=== PATIENT | female | born 1995 | race Caucasian/White ===

== ENCOUNTER → 2017-12-18 | Outpatient (CLI) | payer BC ==
[~2017-12-18] VITALS: Ht 160 cm; Wt 59.0 kg
[~2017-12-18] MED LIST: CETI10CA PO; SINCALIDE 1.2 MCG in IV NORMAL SALINE 50ML 30 ML IV ONE
--- NOTE | 2017-12-18 09:57 | RAD ---
Limited right upper quadrant abdominal ultrasound without comparison for 6 months of epigastric and right upper quadrant pain, intermittent. TECHNIQUE AND FINDINGS: Real-time grayscale and color Doppler evaluation of the right upper quadrant abdominal organs is performed. Visualized portions of the aorta are nonaneurysmal. The IVC is patent. The liver is normal in size, echogenicity, and contour, with no focal parenchymal abnormalities. No intra or extrahepatic biliary ductal dilatation. Common bile duct measures 3 mm in thickness. The gallbladder is fluid distended and free of any gallbladder wall thickening, pericholecystic fluid, shadowing stones, or sludge. No sonographic Giles sign was elicited. The right kidney measures 9.6 x 5.0 x 4.2 cm and is free of hydronephrosis or perinephric fluid. No focal parenchymal abnormalities are seen. Visualized portions of the pancreas are normal as well. No free fluid is seen and no abdominal masses are present within the interrogated regions of the abdomen. IMPRESSION: 1. Normal limited ultrasound of the right upper quadrant. Electronically signed by: Jermaine Humphrey MD (12/18/2017 9:53 AM) [id number]
--- NOTE | 2017-12-18 15:03 | RAD ---
EXAM: Nuclear hepatobiliary scan. HISTORY: Pain. TECHNIQUE: Following intravenous administration of 5.5 mCi Tc 99m Choletec, anterior images of the abdomen were obtained at five minute intervals through one hour. Subsequently, 1.2 mcg sincalide was administered and additional images to assess gallbladder ejection fraction were obtained. FINDINGS: There is prompt radiotracer uptake by the liver. No focal defect is seen. There is normal excretion into the biliary tree. The gallbladder is visualized within 20 minutes and there is free flow into the duodenum. The gallbladder ejection fraction is 44%. IMPRESSION: Normal radionuclide biliary scan. Electronically signed by: Layla Berrios MD (12/18/2017 2:59 PM) [id number]
== END | disposition home or self-care (01) ==
LOC: US 08:49
PROVIDERS: ATTEND Internal Medicine Gastroenterology
DX: R10.11 Right upper quadrant pain (principal); R10.13 Epigastric pain; R10.84 Generalized abdominal pain
CPT/HCPCS: 76705; 78226; 96374; 96375; A9537; J2805